=== PATIENT | male | born 2005 | race Two or more races ===

== ENCOUNTER 2024-02-19 23:32 | Emergency (ER) | payer MEDICAID, SELFPAY ==
[2024-02-19 23:33] VITALS: BMI 32.5
[2024-02-19 23:41] VITALS: BP 149/84; PULSE 87; RESP 18; TEMP 37.6; O2SAT 97
--- NOTE | 2024-02-20 00:10 | EDNOTE_ITS ---
ED General RME/HPI General Chief complaint: General Adult/Misc Complain Stated complaint: POSS EXPOSURE TO HIV Time Seen by Provider: 02/19/24 23:55 Arrival date/time: 02/19/24 23:32 18 year old male present to emergency room with c/o of possible exposure to HIV today. Pt report meeting up with a new sexual partner that may had HIV. SEVERITY: Symptoms are described as being severe with limitations on activities of daily living CONTEXT: The patient is unable to identify any inciting events. DURATION/TIMING: The symptoms started approximately 1day ASSOCIATED SYMPTOMS: The patient is unable to identify any other associated symptoms. MODIFYING FACTORS: The patient is unable to identify any alleviating or aggravating symptoms. PERTINENT ROS: no fevers, no cough, no pleuritic pain, no ripping or tearing sensations, denies any lower extremity edema and no unilateral swelling, no chest pain/shortness of breath no nausea,vomiting, diarrhea, no dizziness/headache no rash no loc/syncope episode no abd/back pain no dsyuria,urgency,frequency REVIEW OF SYSTEMS: See History of Present Illness - with the exception of those mentioned in the history of present illness, all other systems reviewed and reported as negative GENERAL: In general the patient is awake, interactive, in an emergency department gurney. HEAD/EYES/EARS/NOSE/THROAT: normo-cephalic, atraumatic, mucus membranes are moist, anicteric, palpebral conjunctiva is pink, trachea is midline. CARDIOVASCULAR: regular rate and regular rhythm, no murmurs, heart sounds are not distant, strong pulses in all four extremities that are equal and symmetric bilateral upper and lower extremities, normal capillary refill. CHEST/PULMONARY: normal chest rise and fall, good air movement, clear to auscultation bilaterally, normal inspiratory to expiratory ratios without evidence of respiratory distress. NECK: No midline/Paraspinal tenderness, no step off ROM/Strenght intact No Kernig and bruzinski sign. No trauma ABDOMEN: soft, not tender, no masses appreciated BACK: normal range of motion without pain. NEUROLOGICAL: cranio-facial features are symmetric, moves all four extremities equally without obvious limitations or weakness. EXTREMITY: no tenderness to palpation over the long bones or large joints of the bilateral upper and lower extremities, no joint swelling, no joint erythema, no signs of trauma, no unilateral leg swelling and no peripheral edema. SKIN: warm, dry, well-perfused, no jaundice, no rash, no telangiectasias or petechia. PSYCH: calm, cooperative, no evidence of psychosis or agitation Related Data Previous Rx's ?Medication ?Instructions ?Recorded ibuprofen 600 mg tablet 600 mg PO Q6HR PRN PAIN #25 tabs 05/01/16 emtricitabine 200 mg-tenofovir 1 tab PO Q24H #28 tabs 02/20/24 disoproxil fumarate 300 mg tablet (Truvada) raltegravir 400 mg tablet 400 mg PO BID 28 days #56 tabs 02/20/24 Allergies Allergy/AdvReac Type Severity Reaction Status Date / Time No Known Allergies Allergy Unknown Uncoded 02/19/24 23:35 Course Course Course Narrative: Workup: high risk population? Source patient: Hepatitis C RNA and Ab, Hepatitis B surface AG HIV,? g/c, syphilis cbc/cmp? Patient affected: Rapid HIV,? PEP dose of 3 days given to patient cbc/cmp wnl hiv and std panel pending Rx: Post Exposure Prophylaxis immediately (Raltegravir?400 mg PO twice daily + Truvada 1tab [300mg/200mg] PO once daily for 28 days) Disposition: Discharge. Follow up with primary care provider and appropriate Occupational Health provider within next 72 hours for monitoring for drug toxicity, counseling, and general follow up Quality Measures none Orders Category Date Time Status CBC Stat Lab 02/19/24 23:58 Completed CMP [Comprehensive Metabolic Panel] Stat Lab 02/19/24 23:58 Completed Chlamydia/GC/TV - PCR Stat Lab 02/19/24 Ordered HIV (1&2) Antibody Rapid Stat Lab 02/19/24 23:55 Received Hepatitis B Surface Ab Stat Lab 02/19/24 23:55 Received Hepatitis C Antibody Stat Lab 02/19/24 23:55 Received Syphilis Stat Lab 02/19/24 Received EMTRICITABINE/TENOFOVIR Dspk#3 [Truvada Dspk #3] Med 02/19/24 23:59 Discontinued 1 dspk PO X1 ONE RALTEGRAVIR POTASSIUM Dspk#6 [Isentress Dspk#6] Med 02/20/24 00:12 Discontinued 6 tab PO X1 ONE Raltegravir Potassium [Isentress] Med 02/19/24 23:58 Discontinued 400 mg PO X1 ONE Vital Signs Vital signs: Vital Signs Temperature 99.6 F 02/19/24 23:41 Pulse Rate 87 02/19/24 23:41 Respiratory Rate 18 02/19/24 23:41 Blood Pressure 149/84 H 02/19/24 23:41 Pulse Oximetry (%) 97 02/19/24 23:41 Oxygen Delivery Method Room Air 02/19/24 23:41 MDM Patient data External records reviewed:: None Clinical information provided by:: patient Social determinants that could affect healthcare access:: none Patient has the following chronic illnesses:: none How is presenting disease/condition affected by chronic disease/condition?: no chronic disease Evaluation data The following diagnostics were reviewed and interpreted by me:: lab results Lab and/or radiology exams considered but not ordered:: none Interpretation Summary: syphilis, g/c pending cbc/cmp WNl HIV Medications Medications considered but not ordered:: none Medication administrations:: Medication Administration History Discontinued Medications Emtricitabine/Tenofovir (Emtricitabine 200 Mg/Tenofovir 300 Mg Tab #3pk) 1 dspk PO X1 ONE Stop: 02/20/24 00:00 Raltegravir (Raltegravir 400 Mg Tablet) 400 mg PO X1 ONE Stop: 02/19/24 23:59 Last Admin: 02/20/24 00:06 Dose: Not Given Documented By: GB Non-Admin Reason: NOT SUPPLIED. Raltegravir (Raltegravir Potassium 400 Mg Tab #6pk) 6 tab PO X1 ONE Stop: 02/20/24 00:13 as state above Consultations Consultation(s) initiated? (list below): No Diagnosis Differential Diagnosis ED Complaint MDM: PEP Most likely diagnosis given after review of the tests above:: PEP hiv Admission Indicated Admission indicated?: not indicated Explain why admission is indicated or not indicated:: not indicated Admission Request Was there a request for admission?: No Disposition Plan Disposition Plan: Discharge Discharge Attestation Discharge Attestation: The patient and all family members were given an opportunity to ask questions and understood the discharge instructions. Discharge instructions specifically effects, indications for sooner follow up or return to the emergency department, and the expected course of current diagnosis. Patient condition: Stable Medical Decision Making Differential Diagnosis Differential Diagnosis: PEP Lab Data 02/20/24 00:30 02/20/24 00:30 Labs: Lab Results 02/20/24 Range/Units 00:30 WBC 10.4 (4.5-11.0) Thou/mm3 RBC 5.14 (4.50-5.90) Miln/mm3 Hgb 15.1 (13.5-16.0) g/dL Hct 43.7 (41.0-53.0) % MCV 85 (80-100) fL MCH 29.4 (25.0-35.0) pg MCHC 34.6 (31.0-37.0) g/dl RDW Std Deviation 40.1 (35.1-43.9) fL Plt Count 196 (140-440) Thou/mm3 Neut % (Auto) 51 (37-80) % Lymph % (Auto) 40 (10-50) % [place] % (Auto) 8 (0-12) % Eos % (Auto) 1 (0-10) % Baso % (Auto) 0 (0-2.5) % Neut # (Auto) 5.3 (1.8-7.7) Thou/mm3 Lymph # (Auto) 4.1 (1.0-4.8) Thou/mm3 [place] # (Auto) 0.9 H (0.0-0.8) Thou/mm3 Eos # (Auto) 0.1 (0.0-0.5) Thou/mm3 Baso # (Auto) 0.0 (0.0-0.2) Thou/mm3 Immature Gran # (Auto) 0.02 H (0.00-0.00) Thou/mm3 Absolute Nucleated RBC 0.00 (0.00-0.00) Thou/mm3 Immature Gran % 0 (0-0) % Nucleated RBC % 0 (0) /100 WBC Sodium 140 (136-145) mMol/L Potassium 4.1 (3.4-5.1) mMol/L Chloride 104 (98-107) mMol/L Carbon Dioxide 29.5 (20.0-31.0) mMol/L Anion Gap 7 (7-16) BUN 13 (9-23) mg/dL Creatinine 1.1 (0.6-1.3) mg/dL Estim Creat Clear Calc 136.5 (>60) mL/min eGFR > 60 (60 - ) See Note BUN/Creatinine Ratio 12 (12-20) Ratio Glucose 93 (74-106) mg/dL Calculated Osmolality 279 (275-295) Calcium 10.2 (8.3-10.6) mg/dL Corrected Calcium 10.2 H (8.5-10.1) mg/dL Total Bilirubin 0.4 (0.3-1.2) mg/dL AST 24 (0-34) U/L ALT 19 (10-49) U/L Alkaline Phosphatase 108 (46-116) U/L Total Protein 8.1 (5.7-8.2) gm/dL Albumin 5.0 (3.5-5.0) gm/dL Globulin 3.1 (2.3-3.5) gm/dL Albumin/Globulin Ratio 1.6 (1.2-2.2) Discharge Plan Plan Patient Disposition: HOME (Self Care) Health Concerns: Tale PEP regimen for 28 days as instructed Return to Ed if symptoms worsen Prescriptions/Referrals Prescriptions/Med Rec: New emtricitabine-tenofovir (TDF) [Truvada] 200-300 mg tablet 1 tab PO Q24H Qty: 28 0RF raltegravir 400 mg tablet 400 mg PO BID 28 Days Qty: 56 0RF No Action ibuprofen 600 MG tablet 600 mg PO Q6HR PRN (Reason: PAIN) Qty: 25 0RF Referrals: Earnest Aguillon MD [Primary Care Provider] - In 1 week Problem List Clinical Impression: Exposure to HIV Patient/Caregiver Discharge Instructions Education Materials: HIV-1/HIV-2 Rapid Screen Print Language: Citizen Of [place] Stand Alone Forms: Annie Award Info., Patient Portal Info Letter
[2024-02-20 00:48] LABS: Basophils % (Auto) 0 % (0-2.5); Eosinophils # (Auto) 0.1 Thou/mm3 (0.0-0.5); Eosinophils % (Auto) 1 % (0-10); Hematocrit 43.7 % (41.0-53.0); Hemoglobin 15.1 g/dL (13.5-16.0); Immature Granulocytes % (Auto) 0 % (0-0); Immature Granulocytes Auto 0.02 Thou/mm3 (0.00-0.00); Lymphocytes # (Auto) 4.1 Thou/mm3 (1.0-4.8); Lymphocytes % (Auto) 40 % (10-50); Mean Corpuscular HGB Conc 34.6 g/dl (31.0-37.0); Mean Corpuscular Hemoglobin 29.4 pg (25.0-35.0); Mean Corpuscular Volume 85 fL (80-100); Monocytes # (Auto) 0.9 Thou/mm3 (0.0-0.8); Monocytes % (Auto) 8 % (0-12); Neutrophils # (Auto) 5.3 Thou/mm3 (1.8-7.7); Neutrophils % (Auto) 51 % (37-80); Nucleated Red Blood Cell % 0 /100 WBC (0); Platelet Count 196 Thou/mm3 (140-440); RDW Standard Deviation 40.1 fL (35.1-43.9); Red Blood Count 5.14 Miln/mm3 (4.50-5.90); White Blood Count 10.4 Thou/mm3 (4.5-11.0)
[2024-02-20 01:07] LABS: Alanine Aminotransferase 19 U/L (10-49); Albumin/Globulin Ratio 1.6 (1.2-2.2); Alkaline Phosphatase 108 U/L (46-116); Anion Gap 7 (7-16); Aspartate Amino Transferase 24 U/L (0-34); BUN/Creatinine Ratio 12 Ratio (12-20); Bilirubin,Total 0.4 mg/dL (0.3-1.2); Blood Urea Nitrogen 13 mg/dL (9-23); Calcium 10.2 mg/dL (8.3-10.6); Calcium (Corrected) 10.2 mg/dL (8.5-10.1); Carbon Dioxide 29.5 mMol/L (20.0-31.0); Chloride 104 mMol/L (98-107); Creatinine (Component) 1.1 mg/dL (0.6-1.3); Estimated Creatinine Clearance 136.5 mL/min (>60); Globulin 3.1 gm/dL (2.3-3.5); Glucose 93 mg/dL (74-106); Osmolality,Calculated 279 (275-295); Potassium 4.1 mMol/L (3.4-5.1); Sodium 140 mMol/L (136-145); Total Protein 8.1 gm/dL (5.7-8.2); eGFR > 60 See Note
[2024-02-20] MEDS: RALTEGRAVIR POTASSIUM 400 MG TAB #6PK 6 TAB PO (01:13)
[2024-02-20] MEDS: EMTRICITABINE 200 MG/TENOFOVIR 300 MG TAB #3PK 1 DSPK PO (01:14)
[2024-02-20 01:39] LABS: Syphilis Nonreactive (Nonreactive)
[2024-02-20 01:57] LABS: HIV (1&2) Antibody Rapid Non-Reactive
[2024-02-22 02:46] LABS: Hepatitis B Surface Ab NonReact(Not Immune) (Immune); Hepatitis C Antibody Non Reactive (Non React)
== END 2024-02-20 01:17 | disposition home or self-care (01) ==
PROVIDERS: Physician Assistant; Emergency Provider Emergency Medicine; PCP Family Medicine
DX: Z20.6 Contact with and (suspected) exposure to human immunodeficiency virus [HIV] (principal)
CPT/HCPCS: 36415; 80053; 85025; 86703; 86706; 86780; 86803; 87491; 87591; 87661; 99283; J8499